=== PATIENT | female | born 1965 | race Two or more races ===

== ENCOUNTER 2020-10-22 19:00 | Inpatient (IN) | payer MEDICAID, OTHER ==
[~2020-10-22] VITALS: Ht 157.5 cm; Wt 65.3 kg
[2020-10-23 02:55] LABS: Basophils # (auto) 0 10 ^3/uL (0-0.2); Basophils % (auto) 0.1 % (0.0-2.0); Eosinophils # (auto) 0 10 ^3/uL (0-0.8); Eosinophils % (auto) 0.3 % (0.0-7.0); Hematocrit 35.3 % (36.0-46.0); Hemoglobin 12.1 g/dL (12.2-16.2); Lymphocytes # (auto) 1.1 10 ^3/uL (0.4-5.4); Lymphocytes % (auto) 8.6 % (10.0-50.0); Mean Corpuscular Hemoglobin 29.2 pg (28.0-32.0); Mean Corpuscular Hgb Conc. 34.4 g/dL (32.0-36.0); Mean Corpuscular Volume 84.8 fL (80.0-100.0); Monocytes # (auto) 0.8 10 ^3/uL (0-1.3); Monocytes % (auto) 6.2 % (0.0-12.0); Neutrophils # (auto) 10.7 10 ^3/uL (1.6-8.6); Neutrophils % (auto) 84.8 % (37.0-80.0); Nucleated Red Blood Cells % 0.1 %; Red Blood Cells 4.16 10^6/uL (4.0-5.20); White Blood Cell 12.6 10^3/uL (4.4-10.8)
[2020-10-23 03:12] LABS: BUN/Creatinine Ratio 9.3; Calcium 8.2 mg/dL (8.5-10.1); Potassium 3.2 mmol/L (3.5-5.1)
[2020-10-23 03:14] LABS: Urine Bacteria FEW /hpf (None Seen); Urine Blood 3+ /uL (Negative); Urine Mucus FEW (None Seen); Urine Specific Gravity 1.024 (1.001-1.035); Urine WBC 51 /hpf (0 - 5)
[2020-10-23 03:23] LABS: Bilirubin, Total 0.7 mg/dL (0.2-1.0)
[2020-10-23] MEDS ORDERED: DICYCLOMINE HCL (10MG/ML) 2 ML AMPULE IM ONE (03:30)
[2020-10-23] MEDS ORDERED: ACETAMINOPHEN 500 MG TAB PO ONE (03:30)
[2020-10-23] MEDS ORDERED: IOHEXOL 300 MG/ML 100ML BOTTLE IJ ONE (03:45)
[2020-10-23] MEDS ORDERED: SODIUM CHLORIDE 0.9% 1,000 ML IV ONE ×3 (03:45→09:45)
[2020-10-23] MEDS ORDERED: PIPERACILLIN-TAZOB 3.375GM 100 ML IV ONE (04:45)
[2020-10-23] MEDS ORDERED: VANCOMYCIN 1GM/250ML 250 ML IV ONE (04:45)
[2020-10-23] MEDS ORDERED: HYDROcodone-ACET 5/325MG TAB PO PRN (06:30)
[2020-10-23] MEDS ORDERED: SODIUM CHLORIDE 0.9% 1,000 ML IV SCH (06:30)
[2020-10-23] MEDS ORDERED: MORPHINE SULFATE INJECTION 2 MG/ML SYRG IV PRN (06:30)
[2020-10-23] MEDS ORDERED: ACETAMINOPHEN 325 MG TAB PO PRN (06:30)
[2020-10-23] MEDS ORDERED: ONDANSETRON HCL 4 MG/2 ML VIAL IV PRN ×2 (06:30→19:45)
[2020-10-23] MEDS ORDERED: NITROGLYCERIN 0.4 MG SL TAB SL PRN (06:30)
[2020-10-23] MEDS ORDERED: DOCUSATE SOD 100 MG CAP PO PRN (06:30)
[2020-10-23] MEDS ORDERED: VANCOMYCIN PER PHARMACY 0 MG IV SCH (06:30)
[2020-10-23 07:21] LABS: Basophils # (auto) 0 10 ^3/uL (0-0.2); Basophils % (auto) 0.2 % (0.0-2.0); Eosinophils # (auto) 0 10 ^3/uL (0-0.8); Eosinophils % (auto) 0.4 % (0.0-7.0); Hematocrit 33.2 % (36.0-46.0); Hemoglobin 11.4 g/dL (12.2-16.2); Lymphocytes # (auto) 1.2 10 ^3/uL (0.4-5.4); Lymphocytes % (auto) 11.8 % (10.0-50.0); Mean Corpuscular Hemoglobin 29.3 pg (28.0-32.0); Mean Corpuscular Hgb Conc. 34.4 g/dL (32.0-36.0); Mean Corpuscular Volume 85.3 fL (80.0-100.0); Monocytes # (auto) 0.6 10 ^3/uL (0-1.3); Monocytes % (auto) 6.3 % (0.0-12.0); Neutrophils # (auto) 8.3 10 ^3/uL (1.6-8.6); Neutrophils % (auto) 81.3 % (37.0-80.0); Red Blood Cells 3.89 10^6/uL (4.0-5.20); Red Cell Distribution Width 14.4 % (11.8-14.3); White Blood Cell 10.2 10^3/uL (4.4-10.8)
[2020-10-23 07:50] LABS: Potassium 3.1 mmol/L (3.5-5.1)
[2020-10-23 07:51] LABS: INR 1.02 (0.9-1.15); Partial Thromboplastin Time 28.4 sec (23.0-31.2)
[2020-10-23 08:00] LABS: Albumin 2.6 g/dL (3.4-5.0); BUN/Creatinine Ratio 7.1; Bilirubin, Total 0.5 mg/dL (0.2-1.0); Total Protein 6.2 g/dL (6.4-8.2)
[2020-10-23] MEDS: FAMOTIDINE (10MG/ML) 2ML VL IV SCH ×2 (09:42→21:40)
[2020-10-23] MEDS ORDERED: MULTIPLE VITAMIN TAB PO SCH (10:00)
[2020-10-23] MEDS ORDERED: ZINC SULFATE 220mg CAP or TAB PO SCH (10:00)
[2020-10-23] MEDS ORDERED: ENOXAPARIN SOD 40 MG/0.4 ML SYRINGE SC SCH (10:00)
[2020-10-23] MEDS ORDERED: ASCORBIC ACID 500 MG TAB PO SCH (10:00)
[2020-10-23] MEDS ORDERED: POTASSIUM CHLORIDE 40 MEQ, LIDOCAINE 1% (LOCAL ANESTH.) 4 ML in SODIUM CHL 0.9% 250 ML IV ONE (10:15)
[2020-10-23] MEDS ORDERED: NOREPINEPHRINE 8 MG/250ML KIT 250 ML IV ONE (10:22)
[2020-10-23] MEDS ORDERED: NOREPINEPHRINE 8 MG/250ML KIT 250 ML IV SCH (10:30)
[2020-10-23] MEDS: SODIUM CHLORIDE 0.9% 1,000 ML IV SCH ×2 (10:43→18:15)
[2020-10-23] MEDS: ALBUMIN 25% 100 ML IV SCH ×3 (13:51→16:03)
[2020-10-23] MEDS ORDERED: ROCURONIUM 10MG/ML 10ML VIAL IV ONE (13:53)
[2020-10-23] MEDS: PIPERACILLIN-TAZOB 3.375GM 100 ML IV SCH ×2 (14:14→21:40)
[2020-10-23] MEDS ORDERED: fentaNYL CITRATE 100 MCG/2 ML VL ONE ×2 (15:56→17:49)
[2020-10-23] MEDS ORDERED: MIDAZOLAM HCL 2MG/2ML 2ml VIAL (1mg/ml) ONE (15:56)
[2020-10-23] MEDS ORDERED: SUCCINYLCHOLINE CHLORIDE 20 MG/ML 10ML VIAL IV ONE (16:09)
[2020-10-23] MEDS ORDERED: ONDANSETRON HCL 4 MG/2 ML VIAL ONE (17:50)
[2020-10-23] MEDS ORDERED: NEOSTIGMINE 1 MG/ML INJ (10mg/10ML VIAL) ONE (18:44)
[2020-10-23] MEDS ORDERED: GLYCOPYRROLATE 0.2 MG/ML 1ML VIAL ONE (18:44)
[2020-10-23] MEDS ORDERED: HYDROmorphone HCL 2 MG/ML VL IV PRN (19:45)
[2020-10-23] MEDS: HYDROmorphone HCL 2 MG/ML VL IV PRN ×3 (19:53→20:13)
[2020-10-23 21:54] VITALS: BP 147/85
[2020-10-23] MEDS ORDERED: RIS1T PO (21:54)
[2020-10-23 22:00] VITALS: BP 147/85
[2020-10-24] MEDS: HYDROmorphone HCL 2 MG/ML VL IV PRN ×5 (00:22→21:51)
[2020-10-24] MEDS: SODIUM CHLORIDE 0.9% 1,000 ML IV SCH (02:15)
[2020-10-24 05:00] VITALS: BP 143/94
[2020-10-24] MEDS: VANCOMYCIN 1GM/250ML 250 ML IV SCH ×2 (05:00→05:05)
[2020-10-24 06:01] LABS: Potassium 3.4 mmol/L (3.5-5.1)
[2020-10-24 06:06] LABS: Albumin 3.2 g/dL (3.4-5.0); BUN/Creatinine Ratio 4.5; Calcium 7.9 mg/dL (8.5-10.1)
[2020-10-24] MEDS: PIPERACILLIN-TAZOB 3.375GM 100 ML IV SCH (06:07)
[2020-10-24 06:09] LABS: Basophils # (auto) 0 10 ^3/uL (0-0.2); Basophils % (auto) 0.1 % (0.0-2.0); Bilirubin, Total 0.6 mg/dL (0.2-1.0); Eosinophils # (auto) 0 10 ^3/uL (0-0.8); Hematocrit 34.2 % (36.0-46.0); Hemoglobin 11.7 g/dL (12.2-16.2); Lymphocytes # (auto) 0.6 10 ^3/uL (0.4-5.4); Lymphocytes % (auto) 5.8 % (10.0-50.0); Mean Corpuscular Hemoglobin 29.4 pg (28.0-32.0); Mean Corpuscular Hgb Conc. 34.2 g/dL (32.0-36.0); Mean Corpuscular Volume 86.1 fL (80.0-100.0); Monocytes # (auto) 0.6 10 ^3/uL (0-1.3); Monocytes % (auto) 5.7 % (0.0-12.0); Neutrophils # (auto) 9.2 10 ^3/uL (1.6-8.6); Neutrophils % (auto) 88.4 % (37.0-80.0); Red Blood Cells 3.97 10^6/uL (4.0-5.20); Red Cell Distribution Width 14.2 % (11.8-14.3); Total Protein 6.5 g/dL (6.4-8.2); White Blood Cell 10.4 10^3/uL (4.4-10.8)
[2020-10-24 09:00] VITALS: BP 123/68
[2020-10-24] MEDS: FAMOTIDINE (10MG/ML) 2ML VL IV SCH ×2 (10:40→21:48)
[2020-10-24] MEDS: SOD CHL 0.45% WITH 20MEQ KCL 1,000 ML IV SCH ×2 (10:40→21:47)
[2020-10-24 13:00] VITALS: BP 119/70
[2020-10-24 14:04] LABS: Alcohol, Urine < 3.0 mg/dL (0-10); Amphetamine Screen, Urine POSITIVE (NEGATIVE); Barbiturate Scree,Urine NEGATIVE (NEGATIVE); Benzodiazephine Screen, Urine NEGATIVE (NEGATIVE); Cannabinoid Screen, Urine NEGATIVE (NEGATIVE); Cocaine Screen, Urine NEGATIVE (NEGATIVE); Opiate Scree,Urine NEGATIVE (NEGATIVE); Phencyclidine Screen, Urine NEGATIVE (NEGATIVE)
[2020-10-24] MEDS: metroNIDAZOLE 500MG/100ML 100 ML IV SCH ×2 (15:46→21:47)
[2020-10-24] MEDS: LORazepam 2MG/ML-1ML VIAL IV PRN (15:46)
[2020-10-24 17:00] VITALS: BP 131/82
[2020-10-24 20:00] VITALS: BP 132/84
[2020-10-24 21:51] VITALS: BP 132/84
[2020-10-25] MEDS: HYDROmorphone HCL 2 MG/ML VL IV PRN ×4 (02:26→22:00)
[2020-10-25 05:24] VITALS: BP 130/75
[2020-10-25 05:57] LABS: Basophils # (auto) 0 10 ^3/uL (0-0.2); Basophils % (auto) 0.1 % (0.0-2.0); Eosinophils # (auto) 0 10 ^3/uL (0-0.8); Eosinophils % (auto) 0.1 % (0.0-7.0); Hematocrit 31.1 % (36.0-46.0); Lymphocytes # (auto) 0.8 10 ^3/uL (0.4-5.4); Lymphocytes % (auto) 9.8 % (10.0-50.0); Mean Corpuscular Hemoglobin 29.8 pg (28.0-32.0); Mean Corpuscular Hgb Conc. 35.3 g/dL (32.0-36.0); Mean Corpuscular Volume 84.5 fL (80.0-100.0); Monocytes # (auto) 0.8 10 ^3/uL (0-1.3); Monocytes % (auto) 9.1 % (0.0-12.0); Neutrophils # (auto) 6.6 10 ^3/uL (1.6-8.6); Neutrophils % (auto) 80.9 % (37.0-80.0); Red Blood Cells 3.69 10^6/uL (4.0-5.20); White Blood Cell 8.2 10^3/uL (4.4-10.8)
[2020-10-25] MEDS: metroNIDAZOLE 500MG/100ML 100 ML IV SCH ×3 (05:59→22:00)
[2020-10-25] MEDS: SOD CHL 0.45% WITH 20MEQ KCL 1,000 ML IV SCH ×3 (05:59→21:00)
[2020-10-25 06:20] LABS: Calcium 7.8 mg/dL (8.5-10.1); Potassium 3.4 mmol/L (3.5-5.1)
[2020-10-25 06:23] LABS: BUN/Creatinine Ratio 13.6
[2020-10-25 08:00] VITALS: BP 141/81
[2020-10-25] MEDS ORDERED: OMNIPAQUE ORAL SOLN 500ml 12mg/ml PO ONE (08:00)
[2020-10-25] MEDS: cefTRIAXone 1GM/50ML D5W 50 ML IV SCH (09:51)
[2020-10-25] MEDS: LORazepam 2MG/ML-1ML VIAL IV PRN (09:51)
[2020-10-25] MEDS: FAMOTIDINE (10MG/ML) 2ML VL IV SCH ×2 (09:51→22:00)
[2020-10-25 12:48] VITALS: BP 136/80
[2020-10-25 16:54] VITALS: BP 151/81
[2020-10-25 20:00] VITALS: BP 115/80
[2020-10-25 22:00] VITALS: BP 115/80
[2020-10-26] MEDS: LORazepam 2MG/ML-1ML VIAL IV PRN (04:00)
[2020-10-26 05:00] VITALS: BP 121/77
[2020-10-26] MEDS: metroNIDAZOLE 500MG/100ML 100 ML IV SCH ×3 (06:00→22:00)
[2020-10-26 09:00] VITALS: BP 108/63
[2020-10-26] MEDS: cefTRIAXone 1GM/50ML D5W 50 ML IV SCH (11:04)
[2020-10-26] MEDS: FAMOTIDINE (10MG/ML) 2ML VL IV SCH ×2 (11:05→22:00)
[2020-10-26] MEDS: HYDROmorphone HCL 2 MG/ML VL IV PRN ×2 (11:09→23:09)
[2020-10-26] MEDS: SOD CHL 0.45% WITH 20MEQ KCL 1,000 ML IV SCH ×2 (11:09→22:00)
[2020-10-26] MEDS ORDERED: CLINIMIX PER PHARMACY 0 ML IV SCH (11:30)
[2020-10-26 12:12] LABS: Potassium 3.4 mmol/L (3.5-5.1)
[2020-10-26 12:21] LABS: Albumin 2.5 g/dL (3.4-5.0); BUN/Creatinine Ratio 17.6; Bilirubin, Total 0.4 mg/dL (0.2-1.0); Calcium 8.3 mg/dL (8.5-10.1); Magnesium 2.2 mg/dL (1.6-2.6); Phosphorus 1.9 mg/dL (2.5-4.90); Total Protein 6.2 g/dL (6.4-8.2)
[2020-10-26 13:00] VITALS: BP 124/79
[2020-10-26] MEDS ORDERED: POTASSIUM PHOSPHATE 22 MEQ in SODIUM CHL 0.9% 100 ML IV ONE (13:30)
[2020-10-26] MEDS: CIPROFLOXACIN 0.3%OPTH(EYE) SOL 5ML RIGHTEYE SCH ×3 (14:13→22:00)
[2020-10-26 16:40] VITALS: BP 121/76
[2020-10-26] MEDS: InsuLIN REG 1unit/0.01ml Soln (100units/ml) SC SCH ×2 (18:00→23:58)
[2020-10-26] MEDS ORDERED: DEXTROSE (50%) 50ML SYRG IV SCH (18:00)
[2020-10-26] MEDS: ACCU-CHEK COMFORT CURVE STRIP VI SCH ×2 (18:21→23:59)
[2020-10-26 20:00] VITALS: BP 151/81
[2020-10-26] MEDS ORDERED: AMINO ACID INFUSION IN D5W 2,000 ML IV NR (20:00)
[2020-10-26 22:28] VITALS: BP 151/81
[2020-10-27] MEDS: CIPROFLOXACIN 0.3%OPTH(EYE) SOL 5ML RIGHTEYE SCH ×6 (02:00→22:00)
[2020-10-27] MEDS: HYDROmorphone HCL 2 MG/ML VL IV PRN (05:10)
[2020-10-27 05:22] VITALS: BP 128/85
[2020-10-27] MEDS: metroNIDAZOLE 500MG/100ML 100 ML IV SCH ×3 (06:00→22:00)
[2020-10-27] MEDS: ACCU-CHEK COMFORT CURVE STRIP VI SCH ×3 (06:00→17:15)
[2020-10-27] MEDS: InsuLIN REG 1unit/0.01ml Soln (100units/ml) SC SCH ×3 (06:00→18:00)
[2020-10-27 06:23] LABS: Potassium 3.5 mmol/L (3.5-5.1)
[2020-10-27 06:32] LABS: Albumin 2.4 g/dL (3.4-5.0); BUN/Creatinine Ratio 21.6; Bilirubin, Total 0.4 mg/dL (0.2-1.0); Calcium 7.9 mg/dL (8.5-10.1); Magnesium 2.1 mg/dL (1.6-2.6); Phosphorus 2.1 mg/dL (2.5-4.90)
[2020-10-27 09:00] VITALS: BP 104/60
[2020-10-27] MEDS ORDERED: POTASSIUM PHOSPHATE 26.4 MEQ in SODIUM CHL 0.9% 100 ML IV ONE (09:00)
[2020-10-27] MEDS: FAMOTIDINE (10MG/ML) 2ML VL IV SCH ×2 (10:06→22:00)
[2020-10-27] MEDS: cefTRIAXone 1GM/50ML D5W 50 ML IV SCH (10:06)
[2020-10-27] MEDS: SOD CHL 0.45% WITH 20MEQ KCL 1,000 ML IV SCH ×2 (10:07→12:05)
[2020-10-27] MEDS ORDERED: CLINIMIX PER PHARMACY 0 ML IV SCH ×2 (12:00)
[2020-10-27 13:00] VITALS: BP 126/81
[2020-10-27] MEDS: MORPHINE SULFATE INJECTION 2 MG/ML SYRG IV PRN ×2 (14:30→20:30)
[2020-10-27 16:50] VITALS: BP 114/72
[2020-10-27] MEDS: KETOROLAC TROMETH 30 MG/ML 1ML VIAL IV PRN (17:53)
[2020-10-27 20:00] VITALS: BP 126/69
[2020-10-27] MEDS: AMINO ACID INFUSION IN D10W 1,000 ML IV NR (20:00)
[2020-10-27] MEDS: LORazepam 2MG/ML-1ML VIAL IV PRN (20:30)
[2020-10-27 21:53] VITALS: BP 136/78
[2020-10-28] MEDS: CIPROFLOXACIN 0.3%OPTH(EYE) SOL 5ML RIGHTEYE SCH ×6 (02:00→22:28)
[2020-10-28 05:19] VITALS: BP 108/69
[2020-10-28] MEDS: ACCU-CHEK COMFORT CURVE STRIP VI SCH ×4 (06:00→17:44)
[2020-10-28] MEDS: metroNIDAZOLE 500MG/100ML 100 ML IV SCH ×3 (06:00→22:59)
[2020-10-28] MEDS: InsuLIN REG 1unit/0.01ml Soln (100units/ml) SC SCH ×4 (06:00→18:05)
[2020-10-28 06:20] LABS: Potassium 3.4 mmol/L (3.5-5.1)
[2020-10-28 06:31] LABS: Albumin 2.4 g/dL (3.4-5.0); BUN/Creatinine Ratio 27.5; Bilirubin, Total 0.3 mg/dL (0.2-1.0); Magnesium 2.1 mg/dL (1.6-2.6); Phosphorus 2.1 mg/dL (2.5-4.90); Total Protein 5.9 g/dL (6.4-8.2)
[2020-10-28 08:46] VITALS: BP 117/69
[2020-10-28] MEDS ORDERED: POTASSIUM CHLORIDE 20 MEQ, LIDOCAINE 1% (LOCAL ANESTH.) 2 ML in SODIUM CHL 0.9% 100 ML IV ONE (09:15)
[2020-10-28] MEDS: FAMOTIDINE (10MG/ML) 2ML VL IV SCH ×2 (09:47→22:27)
[2020-10-28] MEDS: cefTRIAXone 1GM/50ML D5W 50 ML IV SCH (09:47)
[2020-10-28] MEDS: MORPHINE SULFATE INJECTION 2 MG/ML SYRG IV PRN ×3 (09:49→22:28)
[2020-10-28] MEDS: SOD CHL 0.45% WITH 20MEQ KCL 1,000 ML IV SCH (10:14)
[2020-10-28 13:00] VITALS: BP 127/72
[2020-10-28] MEDS ORDERED: POTASSIUM PHOSPHATE 22 MEQ in SODIUM CHL 0.9% 100 ML IV ONE (13:00)
[2020-10-28 16:38] VITALS: BP 114/78
[2020-10-28] MEDS: AMINO ACID INFUSION IN D10W 1,000 ML IV NR (19:49)
[2020-10-28] MEDS ORDERED: AMINO ACID INFUSION IN D10W 1,000 ML IV ONE (20:00)
[2020-10-28 22:00] VITALS: BP 134/68
[2020-10-29] MEDS: LORazepam 2MG/ML-1ML VIAL IV PRN
[2020-10-29] MEDS: ACCU-CHEK COMFORT CURVE STRIP VI SCH ×5 (01:08→23:30)
[2020-10-29] MEDS: CIPROFLOXACIN 0.3%OPTH(EYE) SOL 5ML RIGHTEYE SCH ×6 (02:24→22:16)
[2020-10-29 05:00] VITALS: BP 115/72
[2020-10-29] MEDS: metroNIDAZOLE 500MG/100ML 100 ML IV SCH ×3 (05:48→22:15)
[2020-10-29] MEDS: InsuLIN REG 1unit/0.01ml Soln (100units/ml) SC SCH ×5 (05:48→23:30)
[2020-10-29] MEDS: MORPHINE SULFATE INJECTION 2 MG/ML SYRG IV PRN ×4 (05:52→19:13)
[2020-10-29 06:06] LABS: Potassium 3.4 mmol/L (3.5-5.1)
[2020-10-29 06:32] LABS: Albumin 2.6 g/dL (3.4-5.0); Bilirubin, Total 0.4 mg/dL (0.2-1.0); Calcium 8.2 mg/dL (8.5-10.1); Magnesium 1.9 mg/dL (1.6-2.6); Phosphorus 2.1 mg/dL (2.5-4.90); Total Protein 6.1 g/dL (6.4-8.2)
[2020-10-29] MEDS ORDERED: POTASSIUM PHOSPHATE 44 MEQ in D5W 5% 250 ML IV ONE (08:45)
[2020-10-29 09:00] VITALS: BP 127/76
[2020-10-29] MEDS: cefTRIAXone 1GM/50ML D5W 50 ML IV SCH (10:09)
[2020-10-29] MEDS: FAMOTIDINE (10MG/ML) 2ML VL IV SCH ×2 (10:09→22:16)
[2020-10-29] MEDS: SOD CHL 0.45% WITH 20MEQ KCL 1,000 ML IV SCH (10:10)
[2020-10-29 13:00] VITALS: BP 112/72
[2020-10-29] MEDS ORDERED: GASTROGRAFIN 120 ML SOL ONE (13:41)
[2020-10-29] MEDS ORDERED: ENOXAPARIN SOD 40 MG/0.4 ML SYRINGE SC ONE (15:30)
[2020-10-29 17:00] VITALS: BP 97/57
[2020-10-29] MEDS ORDERED: AMINO ACID INFUSION IN D10W 1,000 ML IV ONE (20:00)
[2020-10-29 22:00] VITALS: BP 126/69
[2020-10-30] MEDS: CIPROFLOXACIN 0.3%OPTH(EYE) SOL 5ML RIGHTEYE SCH ×6 (03:30→23:02)
[2020-10-30 05:00] VITALS: BP 118/72
[2020-10-30] MEDS: metroNIDAZOLE 500MG/100ML 100 ML IV SCH ×3 (05:37→23:05)
[2020-10-30] MEDS: InsuLIN REG 1unit/0.01ml Soln (100units/ml) SC SCH ×3 (05:39→11:59)
[2020-10-30] MEDS: ACCU-CHEK COMFORT CURVE STRIP VI SCH ×3 (05:39→17:39)
[2020-10-30] MEDS: SOD CHL 0.45% WITH 20MEQ KCL 1,000 ML IV SCH (06:42)
[2020-10-30 09:00] VITALS: BP 103/63
[2020-10-30] MEDS: cefTRIAXone 1GM/50ML D5W 50 ML IV SCH (09:01)
[2020-10-30] MEDS: FAMOTIDINE (10MG/ML) 2ML VL IV SCH ×2 (09:11→23:02)
[2020-10-30] MEDS ORDERED: ENOXAPARIN SOD 40 MG/0.4 ML SYRINGE SC SCH (10:00)
[2020-10-30 10:09] LABS: Potassium 3.6 mmol/L (3.5-5.1)
[2020-10-30 10:15] LABS: Albumin 2.7 g/dL (3.4-5.0); BUN/Creatinine Ratio 21.7; Bilirubin, Total 0.3 mg/dL (0.2-1.0); Calcium 8.1 mg/dL (8.5-10.1); Phosphorus 2.6 mg/dL (2.5-4.90); Total Protein 6.6 g/dL (6.4-8.2)
[2020-10-30 13:00] VITALS: BP 100/74
[2020-10-30 17:00] VITALS: BP 100/72
[2020-10-30] MEDS ORDERED: AMINO ACID INFUSION IN D10W 1,000 ML IV NR (20:00)
[2020-10-30] MEDS: KETOROLAC TROMETH 30 MG/ML 1ML VIAL IV PRN (20:41)
[2020-10-30] MEDS: ENOXAPARIN SOD 80 MG/0.8ML SYRINGE SC SCH (23:03)
[2020-10-31] MEDS: MORPHINE SULFATE INJECTION 2 MG/ML SYRG IV PRN ×4 (00:35→21:00)
[2020-10-31] MEDS: ACCU-CHEK COMFORT CURVE STRIP VI SCH ×4 (00:42→17:30)
[2020-10-31] MEDS: CIPROFLOXACIN 0.3%OPTH(EYE) SOL 5ML RIGHTEYE SCH ×6 (02:00→20:35)
[2020-10-31 05:00] VITALS: BP 90/60
[2020-10-31] MEDS: InsuLIN REG 1unit/0.01ml Soln (100units/ml) SC SCH ×4 (06:00→17:30)
[2020-10-31] MEDS: metroNIDAZOLE 500MG/100ML 100 ML IV SCH ×3 (06:05→20:33)
[2020-10-31 06:48] LABS: Potassium 3.4 mmol/L (3.5-5.1)
[2020-10-31 07:02] LABS: Albumin 2.6 g/dL (3.4-5.0); BUN/Creatinine Ratio 27.6; Bilirubin, Total 0.2 mg/dL (0.2-1.0); Calcium 8.4 mg/dL (8.5-10.1); Phosphorus 3.3 mg/dL (2.5-4.90); Total Protein 6.2 g/dL (6.4-8.2)
[2020-10-31 08:15] VITALS: BP 100/63
[2020-10-31 08:42] VITALS: BP 100/63
[2020-10-31] MEDS: cefTRIAXone 1GM/50ML D5W 50 ML IV SCH (09:14)
[2020-10-31] MEDS: FAMOTIDINE (10MG/ML) 2ML VL IV SCH ×2 (09:14→20:34)
[2020-10-31] MEDS: ENOXAPARIN SOD 80 MG/0.8ML SYRINGE SC SCH (09:15)
[2020-10-31] MEDS ORDERED: POTASSIUM PHOSP 22MEQ(15MMOLE) in NS 100 ML IV ONE (09:45)
[2020-10-31] MEDS ORDERED: POTASSIUM CHL 20 Meq TABLET PO ONE (10:30)
[2020-10-31 12:59] VITALS: BP 96/59
[2020-10-31 16:50] VITALS: BP 108/67
[2020-10-31] MEDS ORDERED: AMINO ACID INFUSION IN D10W 2,000 ML IV NR (20:00)
[2020-10-31] MEDS: APIXABAN 5 MG TAB PO SCH (20:34)
[2020-10-31 22:00] VITALS: BP 114/69
[2020-11-01] MEDS: KETOROLAC TROMETH 30 MG/ML 1ML VIAL IV PRN (00:05)
[2020-11-01] MEDS: ACCU-CHEK COMFORT CURVE STRIP VI SCH ×3 (00:10→11:58)
[2020-11-01] MEDS: CIPROFLOXACIN 0.3%OPTH(EYE) SOL 5ML RIGHTEYE SCH ×3 (02:00→08:39)
[2020-11-01 05:00] VITALS: BP 109/69
[2020-11-01] MEDS: metroNIDAZOLE 500MG/100ML 100 ML IV SCH (05:13)
[2020-11-01] MEDS: InsuLIN REG 1unit/0.01ml Soln (100units/ml) SC SCH ×3 (05:14→11:57)
[2020-11-01] MEDS: FAMOTIDINE (10MG/ML) 2ML VL IV SCH (08:27)
[2020-11-01] MEDS: cefTRIAXone 1GM/50ML D5W 50 ML IV SCH (08:27)
[2020-11-01] MEDS: APIXABAN 5 MG TAB PO SCH (08:28)
[2020-11-01] MEDS: MORPHINE SULFATE INJECTION 2 MG/ML SYRG IV PRN (08:29)
[2020-11-01 09:00] VITALS: BP 114/69
[2020-11-01] MEDS ORDERED: RIVA20TA PO (11:13)
[2020-11-01] MEDS ORDERED: PANT40TA2 PO (11:14)
[2020-11-01 13:00] VITALS: BP 101/57
[2020-11-01 17:00] VITALS: BP 109/72
[2020-11-07] MEDS ORDERED: APIXABAN 5 MG TAB PO SCH (22:00)
== END 2020-11-01 18:30 | disposition home health service (06) | DRG 231 ==
LOC: EDBD 19:00 → ER 19:04 → TELE 19:05 → TELE-CENTR 10-23 20:28 → CENTRAL 10-27 11:42
PROVIDERS: ADMIT Nurse Practitioner Family; ATTEND Internal Medicine
PROC: 0D1M0Z4 Bypass Descending Colon to Cutaneous, Open Approach (ICD-10-PCS; 2020-10-23)
PROC: 0DNW4ZZ Release Peritoneum, Percutaneous Endoscopic Approach (ICD-10-PCS; 2020-10-23)
PROC: 0DTN0ZZ Resection of Sigmoid Colon, Open Approach (ICD-10-PCS; principal; 2020-10-23 16:08)
PROC: 05HA33Z Insertion of Infusion Device into Left Brachial Vein, Percutaneous Approach (ICD-10-PCS; 2020-10-30)
PROC: B54NZZA Ultrasonography of Left Upper Extremity Veins, Guidance (ICD-10-PCS; 2020-10-30)
DX: T18.5XXA Foreign body in anus and rectum, initial encounter (principal); K63.1 Perforation of intestine (nontraumatic); K65.1 Peritoneal abscess; I95.9 Hypotension, unspecified; K76.0 Fatty (change of) liver, not elsewhere classified; D72.829 Elevated white blood cell count, unspecified; E87.6 Hypokalemia; N39.0 Urinary tract infection, site not specified; F20.9 Schizophrenia, unspecified; K62.5 Hemorrhage of anus and rectum; F17.210 Nicotine dependence, cigarettes, uncomplicated; E44.0 Moderate protein-calorie malnutrition; K80.20 Calculus of gallbladder without cholecystitis without obstruction; N73.6 Female pelvic peritoneal adhesions (postinfective); T18.4XXA Foreign body in colon, initial encounter; Z20.822 Contact with and (suspected) exposure to COVID-19; I82.611 Acute embolism and thrombosis of superficial veins of right upper extremity
CPT/HCPCS: 36415; 51702; 71045; 74018; 74176; 74177; 80048; 80053; 80307; 81001; 82040; 82962; 83036; 83605; 83690; 83735; 84100; 84478; 85025; 85610; 85730; 86850; 86900; 86901; 87040; 87086; 87426; 93005; 93971; 96361; 96365; 96366; 96368; 96372; 97110; 97116; 97163; 97530; G0378; J0330; J0696; J1815; J1885; J2001; J2250; J2405; J2543; J3490; J7060; P9047